=== PATIENT | male | born 1975 | race Caucasian/White ===

== ENCOUNTER 2018-08-28 23:40 | Emergency (ER) | payer BC ==
[~2018-08-28] VITALS: Ht 180.3 cm; Wt 111.1 kg
[2018-08-29 00:21] VITALS: BP 149/99
[2018-08-29] MEDS ORDERED: IBUPROFEN 600 MG TABLET PO ONE ×2 (00:30→00:37)
== END 2018-08-29 01:05 | disposition home or self-care (01) ==
LOC: ER 23:57
DX: S93.492A Sprain of other ligament of left ankle, initial encounter (principal); Z98.890 Other specified postprocedural states; W01.0XXA Fall on same level from slipping, tripping and stumbling without subsequent striking against object, initial encounter; Y93.89 Activity, other specified; Y92.89 Other specified places as the place of occurrence of the external cause; Y99.8 Other external cause status
CPT/HCPCS: 73610-TC